=== PATIENT | male | born 1955 | race African-American/Black ===

== ENCOUNTER 2018-01-03 15:28 | Observation (INO) ==
--- NOTE | 2018-01-03 15:53 | Emergency Department Note ---
Disposition Clinical Impression: Chest pain Disposition: Admitted As Inpatient Condition: Fair [facility] Care Provider[facility] - Forms: ED Satisfaction Letter Time of Disposition: 18:11 General Adult HPI - General Chief complaint: ED Shortness of Breath/Dyspnea Stated complaint: Chest Pain, seziure yesterday Time Seen by Provider: 01/03/18 15:37 Source: patient Limitations: no limitations Nursing Notes Reviewed: Yes Vital Signs Reviewed: Yes - History of Present Illness HPI Narrative: Patient presents to the ED with a chief complaint of fever cough. Chest pain when he coughs. Onset Monday. He states his mom was sick on Monday. She has dementia. He states on Monday he started feeling bad as well. Fevered. [place]. Dry cough. States his chest hurts when he coughs. [place] feverish but did not check his temperature. He has been taking some ibuprofen with no relief. No vomiting or diarrhea. Pain Scale: 7 - Related Data Previous Rx's Medication Instructions Recorded LevETIRAcetam [Keppra] 500 mg PO Q12HR #60 tablet 10/28/16 Allergies Allergy/AdvReac Type Severity Reaction Status Date / Time No Known Allergies Allergy Verified 10/28/16 07:02 All systems ED: reviewed and negative except as stated. Constitutional: Reports: fever, chills Cardiovascular: Reports: chest pain. Denies: palpitations Respiratory: Reports: cough. Denies: dyspnea, wheezes, hemoptysis Gastrointestinal: Denies: vomiting, diarrhea Integumentary: Denies: rash Neurological: Denies: headache Past Medical History - Past Medical History Attestation: Yes The following information was validated with the patient. Source: patient Medical history: Reports: diabetes, dialysis, hypertension Psychiatric history: Reports: no psych history - Social History Smoking Status: Current every day smoker Smokeless Tobacco Status: No Alcohol use: Reports: occasionally Drug use: Reports: marijuana Physical Exam Patient is awake alert no acute distress. Pleasant and conversant. Speaks full sentences. Lungs diminished in bases but clear. Temp 99.9. Abdomen soft. - General Limitations: no limitations General appearance: alert, in no apparent distress - Head Head exam: atraumatic, normocephalic - Eye Eye exam: Present: normal appearance, PERRL, EOMI - ENT ENT exam: normal exam, normal oropharynx, mucous membranes moist - Neck Neck exam: Present: normal inspection - Chest Chest inspection: Present: normal inspection - Respiratory Respiratory exam: Absent: respiratory distress, wheezes, stridor - Cardiovascular Cardiovascular exam: Present: regular rate, normal rhythm, normal heart sounds - Abdominal Exam Abdominal exam: Present: soft, tenderness (About epigastric without guarding) - Neurological Exam Neurological exam: Present: alert, oriented X3 - Psychiatric Psychiatric exam: Present: normal affect - Skin Skin exam: Present: warm, dry Course Course Narrative: Patient is in no distress. We will check a 2 view chest x-ray. Flu. Cardiac workup. - Consultations Consultation #1: Dr Tadeo accepts Time: 18:12 Vital Signs Temperature 99.9 F H 01/03/18 15:32 Pulse Rate 103 01/03/18 15:32 Respiratory Rate 18 01/03/18 15:32 Blood Pressure 164/103 01/03/18 15:32 O2 Sat by Pulse Oximetry 95 01/03/18 15:32 Temperature 99.9 F H 01/03/18 15:32 Pulse Rate 81 01/03/18 16:40 Respiratory Rate 22 01/03/18 16:40 Blood Pressure 156/104 01/03/18 16:40 O2 Sat by Pulse Oximetry 96 01/03/18 16:40 Oxygen Delivery Oxygen Delivery Room Air Medical Decision Making - MDM Narrative Medical decision making narrative: The patient's workup was unremarkable for positive troponin 0.11. He has no EKG changes. He will be admitted for further cardiac workup. - Medical Records Medical records reviewed: Yes I reviewed the patient's medical records. - Lab Data Lab results reviewed: Yes I reviewed the patient's lab results. Result diagrams: 01/03/18 16:05 01/03/18 16:05 Lab Results 01/03/18 01/03/18 01/03/18 Range/Units 16:05 16:05 16:05 WBC 7.1 (4.3-11.1) K/mcL RBC 4.60 (4.19-5.50) M/mcL Hgb 13.5 (12.9-16.9) g/dL Hct 41.9 (37.5-50.1) % MCV 91.1 (83.0-100.0) fL MCH 29.3 (28.0-33.3) pg MCHC 32.2 (31.6-35.5) g/dL RDW 12.5 (11.5-14.5) % Plt Count 137 L (140-400) K/mcL MPV 10.2 (9.4-12.4) fL Immature Gran % 0.3 (0-4) % Seg Neutrophils % 70.2 % Lymphocytes % 18.0 % Monocytes % 10.6 % Eosinophils % 0.8 % Basophils % 0.1 % Neutrophils # 5.0 (1.6-8.9) K/mcL Lymphocytes # 1.3 (0.6-4.6) K/mcL Monocytes # 0.8 (0.0-1.3) K/mcL Eosinophils # 0.1 (0.0-0.6) K/mcL Basophils # 0.0 (0.0-0.2) K/mcL Sodium 140 (136-145) mEq/L Potassium 3.1 L (3.5-5.1) mEq/L Chloride 105 (98-107) mEq/L Carbon Dioxide 26 (23-29) mEq/L BUN 11 (8-23) mg/dL Creatinine 1.10 (0.70-1.30) mg/dL Est GFR ( Amer) > 60 (> 60) Est GFR (Non-Af Amer) > 60 (> 60) BUN/Creatinine Ratio 10 (6-26) Glucose 143 H (70-105) mg/dL Calculated Osmolality 292 (280-300) Lactic Acid 1.2 (0.5-2.2) mmol/L Calcium 8.7 (8.6-10.3) mg/dL Troponin I (< 0.04) ng/mL B-Natriuretic Peptide (Less than 100) pg/mL 01/03/18 01/03/18 Range/Units 16:05 16:05 WBC (4.3-11.1) K/mcL RBC (4.19-5.50) M/mcL Hgb (12.9-16.9) g/dL Hct (37.5-50.1) % MCV (83.0-100.0) fL MCH (28.0-33.3) pg MCHC (31.6-35.5) g/dL RDW (11.5-14.5) % Plt Count (140-400) K/mcL MPV (9.4-12.4) fL Immature Gran % (0-4) % Seg Neutrophils % % Lymphocytes % % Monocytes % % Eosinophils % % Basophils % % Neutrophils # (1.6-8.9) K/mcL Lymphocytes # (0.6-4.6) K/mcL Monocytes # (0.0-1.3) K/mcL Eosinophils # (0.0-0.6) K/mcL Basophils # (0.0-0.2) K/mcL Sodium (136-145) mEq/L Potassium (3.5-5.1) mEq/L Chloride (98-107) mEq/L Carbon Dioxide (23-29) mEq/L BUN (8-23) mg/dL Creatinine (0.70-1.30) mg/dL Est GFR ( Amer) (> 60) Est GFR (Non-Af Amer) (> 60) BUN/Creatinine Ratio (6-26) Glucose (70-105) mg/dL Calculated Osmolality (280-300) Lactic Acid (0.5-2.2) mmol/L Calcium (8.6-10.3) mg/dL Troponin I 0.11 H* (< 0.04) ng/mL B-Natriuretic Peptide 65 (Less than 100) pg/mL - Radiology Data Radiology results reviewed: Yes I reviewed the patient's radiology results. Chest X-Ray 01/03/18 15:47 IMPRESSION: No acute cardiopulmonary process. D/ / Destini Greco MD / Destini Greco MD Interpreting Provider: Destini Greco MD Chest CTA 01/03/18 16:44 IMPRESSION: No evidence of pulmonary embolism or acute pulmonary abnormality. D/ / Talat Crowe MD / Talat Crowe MD Interpreting Provider: Talat Crowe MD - EKG Data EKG #1 EKG attestation: Yes I reviewed and interpreted this EKG. EKG results narrative: Normal sinus rhythm at 86. Anterolateral and inferior T-wave inversions. [place] deviation. Normal QRS. QT 444 with a QTC of 387. Unchanged from EKG 2016. Critical Care Time Critical Care Time: No
[2018-01-03 16:17] LABS: Basophils % 0.1 %; Eosinophils # 0.1 K/mcL (0.0-0.6); Eosinophils % 0.8 %; Hematocrit 41.9 % (37.5-50.1); Hemoglobin 13.5 g/dL (12.9-16.9); Immature Granulocytes % 0.3 % (0-4); Lymphocytes # 1.3 K/mcL (0.6-4.6); Mean Corpuscular HGB Conc 32.2 g/dL (31.6-35.5); Mean Corpuscular Hemoglobin 29.3 pg (28.0-33.3); Mean Corpuscular Volume 91.1 fL (83.0-100.0); Mean Platelet Volume 10.2 fL (9.4-12.4); Monocytes # 0.8 K/mcL (0.0-1.3); Monocytes % 10.6 %; Platelet Count 137 K/mcL (140-400); Red Cell Distribution Width 12.5 % (11.5-14.5); Segmented Neutrophils % 70.2 %
[2018-01-03] MEDS ORDERED: 0.9 % Sodium Chloride 1,000 ML IVC ONE (16:31)
[2018-01-03] MEDS ORDERED: Ketorolac 30 MG/ML VIAL IVP ONE (16:31)
[2018-01-03 16:35] LABS: BUN/Creatinine Ratio 10 (6-26); Blood Urea Nitrogen 11 mg/dL (8-23); Calcium 8.7 mg/dL (8.6-10.3); Carbon Dioxide 26 mEq/L (23-29); Chloride 105 mEq/L (98-107); Glucose 143 mg/dL (70-105); Osmolality,Calculated 292 (280-300); Potassium 3.1 mEq/L (3.5-5.1); Sodium 140 mEq/L (136-145); eGFR For African Americans > 60 (> 60); eGFR For Non-African Americans > 60 (> 60)
[2018-01-03] MEDS ORDERED: Aspirin 325 MG TABLET PO ONE (16:44)
[2018-01-03] MEDS ORDERED: Nitroglycerin 0.4 MG TAB.SUBL SL PRN (16:44)
[2018-01-03] MEDS ORDERED: Naloxone 0.4 MG/ML INJ IVP PRN (18:38)
[2018-01-03] MEDS ORDERED: *HR* Dextrose 50 % in Water (Syg) 50 ML SYRINGE IVP PRN (18:41)
[2018-01-03] MEDS ORDERED: Dextrose Gel 15 GM/37.5 ML TUBE PO PRN ×2 (18:41)
[2018-01-03] MEDS ORDERED: D5% in Water 1,000 ML IVC PRN (18:41)
--- NOTE | 2018-01-03 18:51 | Internal Med History&Physical ---
Date of Encounter: 01/03/18 Time of Encounter: 18:47 Assessment and Plan (1) Chest pain Current visit: Yes Status: Acute Reporting chest pain with cough and viral URI symptoms, concern for pericarditis given his clinical presentstion No prior h/o CAD, but his initial troponin was elevated at 0.11, without EKG changes or chest pain except with cough. He has not had a formal cardiac workup. -Trend troponins Q6hrs x2 -TTE -Continuous tele and Spo2 monitoring Qualifiers: Chest pain type: unspecified Qualified Code(s): R07.9 - Chest pain, unspecified (2) Viral URI with cough Current visit: Yes Status: Acute Presents with weakness, fatigue, fever and productive cough since Monday evening I suspect the patient may have a viral URI versus influenza -supportive care -rapid influenza -respiratory infection panel if rapid flu negative -respiratory support PRN (3) Elevated troponin Current visit: Yes Status: Acute elevated troponin likely d/t demand ischemia. -trend troponin -continuous tele Internal Medicine - H&P: HPI Chief complaint: weakness, fatigue, cough, and chest pain with cough Admitted From: Home Plans for Post Hospital Care: Home History of present illness: Mr. Montano is a 62 year old male with a PMH of diabetes, presents today to [facility] with fatigue, weakness, fevers and cough. Additionally, he mentions chest pain with coughing. This all began on Monday evening and has been progressively getting worse since. He reports that his mother has been sick since Monday and he has frequent contact with her. He admits to fevers with the highest of 101.5, aches, sore throat, and a cough productive of yellow sputum. He denies any N/V/D, or abdominal pain, flank pain, dsyuria, or unilateral extremity swelling or pain. Past Med Surg Social Fam HX - Past Medical History Medical history: diabetes, dialysis, hypertension Psychiatric history: no psych history - Social History Smoking Status: Current every day smoker Smokeless Tobacco Status: No Alcohol use: occasionally Drug use: marijuana - Family History Mother Living Status: Still Living Father History Unknown: Yes - Additional Family History Additional family history: non contributory Internal Medicine - H&P: Meds Ketoconazole Shampoo [Nizoral Shampoo] 1 appl TP AD 01/03/18 [History] NIFEdipine [Nifedipine ER] 90 mg PO DAILY 01/03/18 [History] Sildenafil Citrate [Viagra] 100 mg PO AD PRN 01/03/18 [History] Terazosin HCl 10 mg PO HS 01/03/18 [History] 3 Allergy/AdvReac Type Severity Reaction Status Date / Time No Known Allergies Allergy Verified 10/28/16 07:02 All Systems PM: A 10-system review of systems was performed and is negative for pertinent findings except as documented above in the HPI. - Constitutional Constitutional: as per HPI - EENT Eyes: as per HPI Nose, mouth and throat: as per HPI - Cardiovascular Cardiovascular ROS IM: as per HPI, dyspnea (mild SOB) - Respiratory Respiratory: no cough, no dyspnea, no wheezing, no excessive phlegm production - Gastrointestinal Gastrointestinal: no abdominal pain, no diarrhea, no hematemesis, no hematochezia, no melena, no nausea, no vomiting - Musculoskeletal Musculoskeletal ROS IM: no numbness, no tingling - Integumentary Integumentary IM: no rash, no unusual bruising - Neurological Neurological ROS: no confusion, no convulsions, no focal weakness, no numbness, no tingling, no tremor(s) - Constitutional Vitals: Temp Pulse Resp BP Pulse Ox 99.9 F H 84 18 166/48 96 01/03/18 15:32 01/03/18 18:08 01/03/18 18:25 01/03/18 18:25 01/03/18 18:08 General appearance: Present: cooperative, mild distress, A&O X 3, answers questions appropriately - Head Head exam: Present: atraumatic, normocephalic - Eye Eye exam: Present: PERRL, conjuntiva pink, sclera anicteric Pupils: Present: PERRL - Neck Neck exam general surgery: Present: supple, trachea midline. Absent: lymphadenopathy - Respiratory Respiratory exam: Present: CTAB. Absent: accessory muscle use, rales, rhonchi, wheezes - GI/Abdominal GI/Abdominal exam: Present: normal bowel sounds, soft, no peritoneal signs. Absent: distended, tenderness - Extremities Exam Extremities exam: Present: warm, radial pulses palpable and symmetrical. Absent : calf tenderness, cyanotic, pedal edema - Neurological Exam Neurological exam: Present: CN II-XII intact, oriented X3, no focal deficits. Absent: pronater drift, facial droop, speech deficit - Skin Skin exam: Present: dry Additional comments: small ulcer on his right lower lip Internal Med - H&P Results - Labs CBC & Chem 7: 01/03/18 16:05 01/03/18 16:05 - EKG Data -: EKG Interpreted by Myself EKG shows normal: sinus rhythm Rate: normal - EKG Data Prior EKG available for review: yes When compared to previous EKG: there is no significant change Interpretation IM: normal EKG EKG comments: NSR without st elevation or depression 01/03/18 18:52 - Impressions Impressions Chest X-Ray 01/03/18 15:47 IMPRESSION: No acute cardiopulmonary process. D/ / Destini Greco MD / Destini Greco MD Interpreting Provider: Destini Greco MD Chest CTA 01/03/18 16:44 IMPRESSION: No evidence of pulmonary embolism or acute pulmonary abnormality. D/ / Talat Crowe MD / Talat Crowe MD Interpreting Provider: Talat Crowe MD
[2018-01-03] MEDS ORDERED: GuaiFENesin/Dextromethorphan TABLET PO PRN (19:11)
[2018-01-03] MEDS ORDERED: Ketorolac 15 MG/ML VIAL IVP PRN (22:12)
[2018-01-03] MEDS: Melatonin 3 MG TABLET PO PRN (22:22)
[2018-01-03] MEDS: Insulin LISPRO 300 UNITS/3 ML VIAL SQ SCH (22:33)
[2018-01-04] MEDS: Acetaminophen 325 MG TABLET PO PRN ×2 (00:29→20:23)
[2018-01-04 04:24] LABS: Hematocrit 39.1 % (37.5-50.1); Hemoglobin 12.7 g/dL (12.9-16.9); Mean Corpuscular HGB Conc 32.5 g/dL (31.6-35.5); Mean Corpuscular Hemoglobin 29.5 pg (28.0-33.3); Mean Corpuscular Volume 90.7 fL (83.0-100.0); Mean Platelet Volume 10.6 fL (9.4-12.4); Platelet Count 124 K/mcL (140-400); Red Blood Count 4.31 M/mcL (4.19-5.50); Red Cell Distribution Width 12.4 % (11.5-14.5)
[2018-01-04 04:54] LABS: BUN/Creatinine Ratio 11 (6-26); Blood Urea Nitrogen 10 mg/dL (8-23); Calcium 8.5 mg/dL (8.6-10.3); Carbon Dioxide 28 mEq/L (23-29); Chloride 105 mEq/L (98-107); Glucose 155 mg/dL (70-105); Osmolality,Calculated 292 (280-300); Potassium 3.3 mEq/L (3.5-5.1); Sodium 140 mEq/L (136-145); eGFR For African Americans > 60 (> 60); eGFR For Non-African Americans > 60 (> 60)
[2018-01-04] MEDS: Insulin LISPRO 300 UNITS/3 ML VIAL SQ SCH ×4 (07:30→20:23)
[2018-01-04] MEDS: NIFEdipine XL (24 HR) 30 MG TAB.ER.24 PO SCH (10:03)
--- NOTE | 2018-01-04 13:31 | Cardiology Consult Note ---
Date of Encounter: 01/04/18 Time of Encounter: 11:30 Assessment and Plan (1) Viral URI with cough Current Visit: Yes Status: Acute Per cardiology: -Admitted with febrile illness. -Management per primary service. (2) Elevated troponin Current Visit: Yes Status: Acute Per cardiology: -Troponins 0.11, 0.12 in the setting of viral URI, febrile illness. -States has chest pain with coughing. -Denies current chest pain. -Denies exertional symptoms. Reports was biking 8 miles per day prior to illness. -TTE with LVEF 65%, no segmental wall motion abnormalities -ECG with no acute ischemic changes. -Do not suspect NSTEMI, suspect demand ischemia related to above. No cardiac rehab consult warranted. -Will start asa, beta blokcer, and statin. -Anticipate cardiology sign off. Will arrange follow up in outpatient setting. Discussion w patient/family: The assessment and plan as outlined above was discussed with the patient and/or family members who expressed understanding and agreement. All questions were answered. Thank you for involving us in the care of your patient. Please call with any questions. Discussed and reviewed with . History of Present Illness Consult date: 01/04/18 Requesting physician: Tamar Guardado Consult reason: elevated troponin Chief complaint: cough ,fever History of present illness: Mr. Montano is a 62 year old male with a relevant past medical history of HTN, DM , smoking. Patient presented to [facility] with complaints of cough, congestion, and fever. Patient states he had chest pain while coughing. Reports increased shortness fo breath and increased fatigue that correlate with onset of URI symptoms. Patient reports prior to illness, he was biking 8 miles per day without symptoms. Denies current chest pain. Past Med Surg Social Fam HX - Past Medical History Attestation: Yes The following information was validated with the patient. Source: patient, old records reviewed, obtained from family Medical history: diabetes, hypertension Psychiatric history: no psych history - Social History Smoking Status: Current every day smoker Smokeless Tobacco Status: No Alcohol use: occasionally Drug use: marijuana - Family History Mother Living Status: Still Living Father History Unknown: Yes Medications and Allergies Ketoconazole Shampoo [Nizoral Shampoo] 1 appl TP AD 01/03/18 [History] NIFEdipine [Nifedipine ER] 90 mg PO DAILY 01/03/18 [History] Sildenafil Citrate [Viagra] 100 mg PO AD PRN 01/03/18 [History] Terazosin HCl 10 mg PO HS 01/03/18 [History] 3 Allergy/AdvReac Type Severity Reaction Status Date / Time No Known Allergies Allergy Verified 10/28/16 07:02 All Systems Review: A 10-system review of systems was performed and is negative for pertinent findings except as documented above in the HPI. - Constitutional Constitutional: fever(s) - Cardiovascular Cardiovascular: as per HPI - Respiratory Respiratory: cough Physical Examination Vital Signs, Last 4 Hours Temp Pulse Resp BP Pulse Ox 01/04/18 11:00 90 01/04/18 10:38 99.7 F H 91 18 136/83 90 General: Conversant, No Apparent Distress HEENT: Atraumatic, Normocephaly, Mucus Membranes Moist Neck: No JVD, Normal carotid pulses Cardiac: Reg Rate and Rhythm, Normal S1 and S2, No Murmur Lungs: Normal Breath Sounds, No Wheeze, Rales, Rhonchi Neuro: Alert and responsive, No focal deficits noted Abdomen: Soft, Non-Tender Skin: No rashes noted on visualized skin Musculoskeletal: No Chest Wall Tenderness Extremities: No Clubbing, No Cyanosis, No Edema, Normal Pulses Results 01/04/18 03:57 01/04/18 03:57 Lab Results Impressions Chest X-Ray 01/03/18 15:47 IMPRESSION: No acute cardiopulmonary process. D/ / Destini Greco MD / Destini Greco MD Interpreting Provider: Destini Greco MD Chest CTA 01/03/18 16:44 IMPRESSION: No evidence of pulmonary embolism or acute pulmonary abnormality. D/ / Talat Crowe MD / Talat Crowe MD Interpreting Provider: Talat Crowe MD Echocardiogram 01/04/18 19:09 Impressions: LVEF 65%. Normal LV chamber size and function. Mild concentric left ventricular hypertrophy. Mild left ventricular diastolic dysfunction. Normal right ventricular structure and function. No evidence of pulmonary hypertension. No significant valvular dysfunction. Left Ventricular Wall Motion: Rest Echo Findings All wall segments showed normal motion. Findings: Study Quality * Technically adequate exam. ECG Findings * Normal sinus rhythm. Left Ventricle * LVEF 65%. * Normal LV chamber size and function. * Mild concentric left ventricular hypertrophy. * Mild left ventricular diastolic dysfunction. Right Ventricle * Normal right ventricular structure and function. Left Atrium * Mildly dilated left atrium. Right Atrium * Mildly dilated right atrium. Interatrial Septum * Interatrial septum not well evaluated. Aortic Valve * Trileaflet aortic valve with normal function. * No aortic regurgitation. * No aortic stenosis. Mitral Valve * Normal mitral valve structure and function. * No mitral regurgitation. * No mitral stenosis. Tricuspid Valve * Normal tricuspid valve structure and function. * Trace tricuspid regurgitation. * No evidence of pulmonary hypertension. Pulmonic Valve * Normal pulmonic valve structure and function. * No pulmonic regurgitation. Aorta * Normally sized aortic root. Pericardium * The pericardium appears normal. IVC * Normal IVC dimensions and inspiratory collapse. Pulmonary Artery * Normal visualized portions of the main pulmonary artery. Active Medications Acetaminophen (Tylenol) 650 mg PO Q6HR PRN PRN Reason: Mild Pain Stop: 07/05/18 22:13 Last Admin: 01/04/18 00:29 Dose: 650 mg Aspirin (Aspirin Ec) 81 mg PO DAILY COLT Stop: 07/07/18 09:01 Atorvastatin Calcium (Lipitor) 40 mg PO HS COLT Stop: 07/06/18 21:01 Dextrose/Water (Dextrose 50% (Syg)) 25 ml IVP AD PRN PRN Reason: Hypoglycemia Stop: 07/05/18 18:42 Glucagon (Glucagen) 1 mg IM ONCE PRN PRN Reason: Hypoglycemia Stop: 07/05/18 18:42 Glucose (Gluctose) 15 gm PO ONCE PRN PRN Reason: Hypoglycemia Stop: 07/05/18 18:42 Glucose (Gluctose) 30 gm PO ONCE PRN PRN Reason: Hypoglycemia Stop: 07/05/18 18:42 Guaifenesin (Mucinex Dm) 1 each PO BID PRN PRN Reason: Cough Stop: 07/05/18 19:12 Last Admin: 01/03/18 22:21 Dose: 1 each Dextrose (Dextrose 5%) 1,000 mls @ 100 mls/hr IVC .Q10H PRN PRN Reason: HYPOGLYCEMIA Stop: 07/05/18 18:42 Insulin Human Lispro (Humalog) 0 units SQ HS COLT PRN Reason: Protocol Stop: 07/05/18 21:01 Last Admin: 01/03/18 22:33 Dose: Not Given Insulin Human Lispro (Humalog) 0 units SQ TIDAC COLT PRN Reason: Protocol Stop: 07/06/18 07:31 Last Admin: 01/04/18 11:45 Dose: Not Given Melatonin (Melatonin) 1.5 mg PO HS PRN PRN Reason: Insomnia Stop: 07/05/18 21:15 Last Admin: 01/03/18 22:22 Dose: 1.5 mg Metoprolol Succinate (Toprol Xl) 12.5 mg PO DAILY [facility] Stop: 07/07/18 09:01 Naloxone HCl (Narcan) 0.4 mg IVP Q2MIN PRN PRN Reason: SEE COMMENTS Stop: 07/05/18 18:39 Nifedipine (Procardia Xl) 90 mg PO DAILY [facility] Stop: 07/06/18 09:01 Last Admin: 01/04/18 10:03 Dose: 90 mg Nitroglycerin (Nitroglycerin) 0.4 mg SL Q5MIN PRN PRN Reason: Chest Pain Stop: 07/05/18 16:45 Last Admin: 01/03/18 16:54 Dose: 0.4 mg Terazosin HCl (Hytrin) 10 mg PO HS [facility] Stop: 07/05/18 21:01 Last Admin: 01/03/18 22:35 Dose: Not Given Laboratory Tests 01/03/18 01/03/18 01/04/18 16:05 22:13 03:57 Hgb 12.7 L Creatinine Troponin I 0.11 H* 0.12 H* 01/04/18 03:57 Hgb Creatinine 0.92 Troponin I - Imaging and Cardiology Chest Xray: report reviewed Echo: report reviewed - EKG Interpretation EKG results cardiology: personally reviewed (ECG with SR, HR 86.), other ( Telemetry reviewed with average HR previous 12 hours noted to be 92, SR. PVCs and PACs noted.) Consult Discharge Plan - Plan [facility]errals: [facility] [Primary Care Provider[facility] -
--- NOTE | 2018-01-04 17:49 | Internal Med Progress Note ---
Date of Encounter: 01/04/18 Time of Encounter: 17:47 - Assessment and plan (1) Chest pain Current Visit: Yes Status: Acute Assessment and plan: Chest pain with cough, viral illness Per cardiology: -Troponins 0.11, 0.12 in the setting of viral URI, febrile illness. -States has chest pain with coughing. -Denies current chest pain. -Denies exertional symptoms. Reports was biking 8 miles per day prior to illness. -TTE with LVEF 65%, no segmental wall motion abnormalities -ECG with no acute ischemic changes. -Do not suspect NSTEMI, suspect demand ischemia related to above. No cardiac rehab consult warranted. -Will start asa, beta blokcer, and statin. -Anticipate cardiology sign off. Will arrange follow up in outpatient setting. Qualifiers: Chest pain type: unspecified Qualified Code(s): R07.9 - Chest pain, unspecified (2) Elevated troponin Current Visit: Yes Status: Acute Assessment and plan: Troponin 0.11, 0.12 in the setting of viral upper respiratory infection and febrile illness. Do not suspect an STEMI suspect demand ischemia related to above know and anticipated cardiology workup they plan to sign off and arrange follow-up in outpatient setting this was discussed with the family and the patient by cardiology (3) Viral URI with cough Current Visit: Yes Status: Acute Assessment and plan: Check respiratory infection panel Rapid influenza negative O2 as needed Cough suppressant (4) Hypokalemia Current Visit: Yes Status: Acute Assessment and plan: Replace and recheck in a.m. - Constitutional Vitals: Temp Pulse Resp BP Pulse Ox 98.3 F 104 18 126/72 92 01/04/18 15:22 01/04/18 15:22 01/04/18 15:22 01/04/18 15:22 01/04/18 15:22 General appearance: Present: cooperative, mild distress, A&O X 3, pleasant, no acute distress, answers questions appropriately - Head Head exam: Present: atraumatic, normocephalic - Eye Eye exam: Present: PERRL, conjuntiva pink, sclera anicteric Pupils: Present: PERRL - Neck Neck exam general surgery: Present: supple, trachea midline. Absent: lymphadenopathy - Respiratory Respiratory exam: Present: decreased breath sounds. Absent: accessory muscle use, rales, rhonchi, wheezes Additional comments: cough - Cardiovascular Cardiovascular exam: Present: RRR, +S1, +S2. Absent: diastolic murmur, gallop, rubs, systolic murmur - GI/Abdominal GI/Abdominal exam: Present: normal bowel sounds, soft, no peritoneal signs. Absent: distended, tenderness - Extremities Exam Extremities exam: Present: warm, radial pulses palpable and symmetrical. Absent : calf tenderness, cyanotic, pedal edema - Neurological Exam Neurological exam: Present: CN II-XII intact, oriented X3, no focal deficits. Absent: pronater drift, facial droop, speech deficit - Skin Skin exam: Present: dry, intact, warm Internal Medicine: Result - Labs CBC & Chem 7: 01/04/18 03:57 01/04/18 03:57 Labs: Short CBC 01/04/18 Range/Units 03:57 WBC 9.7 (4.3-11.1) K/mcL Hgb 12.7 L (12.9-16.9) g/dL Hct 39.1 (37.5-50.1) % Plt Count 124 L (140-400) K/mcL BMP 01/04/18 03:57 Sodium 140 Potassium 3.3 L Chloride 105 Carbon Dioxide 28 BUN 10 Creatinine 0.92 Glucose 155 H Calcium 8.5 L Cardiac Enzymes 01/03/18 Range/Units 22:13 Troponin I 0.12 H* (< 0.04) ng/mL - Impressions Impressions Echocardiogram 01/04/18 19:09 Impressions: LVEF 65%. Normal LV chamber size and function. Mild concentric left ventricular hypertrophy. Mild left ventricular diastolic dysfunction. Normal right ventricular structure and function. No evidence of pulmonary hypertension. No significant valvular dysfunction. Left Ventricular Wall Motion: Rest Echo Findings All wall segments showed normal motion. Findings: Study Quality * Technically adequate exam. ECG Findings * Normal sinus rhythm. Left Ventricle * LVEF 65%. * Normal LV chamber size and function. * Mild concentric left ventricular hypertrophy. * Mild left ventricular diastolic dysfunction. Right Ventricle * Normal right ventricular structure and function. Left Atrium * Mildly dilated left atrium. Right Atrium * Mildly dilated right atrium. Interatrial Septum * Interatrial septum not well evaluated. Aortic Valve * Trileaflet aortic valve with normal function. * No aortic regurgitation. * No aortic stenosis. Mitral Valve * Normal mitral valve structure and function. * No mitral regurgitation. * No mitral stenosis. Tricuspid Valve * Normal tricuspid valve structure and function. * Trace tricuspid regurgitation. * No evidence of pulmonary hypertension. Pulmonic Valve * Normal pulmonic valve structure and function. * No pulmonic regurgitation. Aorta * Normally sized aortic root. Pericardium * The pericardium appears normal. IVC * Normal IVC dimensions and inspiratory collapse. Pulmonary Artery * Normal visualized portions of the main pulmonary artery. Consult Discharge Plan - Plan [facility]errals: [facility] [Primary Care Provider] -
[2018-01-04] MEDS ORDERED: Benzonatate 100 MG CAPSULE PO PRN (17:54)
[2018-01-04 19:39] LABS: Adenovirus Not Detected (Not Detect); Bordetella Pertussis Not Detected (Not Detect); Chlamydophila pneumoniae Not Detected (Not Detect); Coronavirus 229E Not Detected (Not Detect); Coronavirus HKU1 Not Detected (Not Detect); Coronavirus NL63 Not Detected (Not Detect); Coronavirus OC43 Not Detected (Not Detect); Human Metapneumovirus Not Detected (Not Detect); Human Rhinovirus/Enterovirus Not Detected (Not Detect); Influenza A Subtype 2009 H1 Not Detected (Not Detect); Influenza A Untypeable Not Detected (Not Detect); Influenza B Not Detected (Not Detect); Mycoplasma pneumoniae Not Detected (Not Detect); Parainfluenza Virus 1 Not Detected (Not Detect); Parainfluenza Virus 2 Not Detected (Not Detect); Parainfluenza Virus 3 Not Detected (Not Detect); Parainfluenza Virus 4 Not Detected (Not Detect); Respiratory Syncytial Virus Not Detected (Not Detect)
--- NOTE | 2018-01-04 19:42 | Electrocardiograph Report ---
[place] [id number] Test Date: 2018-01-03 Pat Name: Louis Montano Department: 103 Room: 3B Gender: M [employer] Inspector: : [id number] Requested By: Megha See Order Number: [id number] Reading MD: Emmanuel Burgess MD Measurements Intervals [place] Rate: 86 P: 53 AR: 200 QRS: 59 QRSD: 86 T: -3 QT: 344 QTc: 387 Interpretive Statements SINUS RHYTHM LEFT VENTRICULAR HYPERTROPHY AND ST-T CHANGE BASELINE ARTIFACT Electronically Signed On 01-04-2018 19:40:32 EST by Emmanuel Burgess MD
[2018-01-04] MEDS: Melatonin 3 MG TABLET PO PRN (20:24)
[2018-01-05 04:54] LABS: Basophils % 0.3 %; Eosinophils % 0.6 %; Hematocrit 37.7 % (37.5-50.1); Immature Granulocytes % 0.4 % (0-4); Lymphocytes # 2.3 K/mcL (0.6-4.6); Lymphocytes % 33.3 %; Mean Corpuscular HGB Conc 31.8 g/dL (31.6-35.5); Mean Corpuscular Hemoglobin 28.7 pg (28.0-33.3); Mean Corpuscular Volume 90.2 fL (83.0-100.0); Mean Platelet Volume 10.5 fL (9.4-12.4); Monocytes # 0.8 K/mcL (0.0-1.3); Monocytes % 11.6 %; Neutrophils # 3.7 K/mcL (1.6-8.9); Nucleated Red Blood Cells 0.4 /100 WBC (0); Platelet Count 130 K/mcL (140-400); Red Blood Count 4.18 M/mcL (4.19-5.50); Red Cell Distribution Width 12.2 % (11.5-14.5); Segmented Neutrophils % 53.8 %
[2018-01-05 05:41] LABS: BUN/Creatinine Ratio 14 (6-26); Blood Urea Nitrogen 13 mg/dL (8-23); Calcium 8.6 mg/dL (8.6-10.3); Carbon Dioxide 25 mEq/L (23-29); Chloride 106 mEq/L (98-107); Glucose 146 mg/dL (70-105); Osmolality,Calculated 293 (280-300); Potassium 3.1 mEq/L (3.5-5.1); Sodium 140 mEq/L (136-145); eGFR For African Americans > 60 (> 60); eGFR For Non-African Americans > 60 (> 60)
[2018-01-05] MEDS: Insulin LISPRO 300 UNITS/3 ML VIAL SQ SCH ×2 (08:46→11:37)
[2018-01-05] MEDS: NIFEdipine XL (24 HR) 30 MG TAB.ER.24 PO SCH (08:57)
[2018-01-05] MEDS ORDERED: Aspirin Enteric Coated 81 MG Tablet PO SCH (09:00)
[2018-01-05] MEDS ORDERED: Metoprolol XL (24 HR) Succ 25 MG TAB.ER.24H PO SCH (09:00)
[2018-01-05 10:35] VITALS: BP 131/82
--- NOTE | 2018-01-05 11:43 | Discharge Summary ---
Date of Encounter: 01/05/18 Time of Encounter: 11:41 - Discharge Diagnosis (1) Chest pain Priority: Primary Status: Acute Comments: Patient had chest pain with cough and upper respiratory infection type symptoms Per cardiology note: adynamic troponins with a history of high blood pressure. No dynamic changes on EKG or biomarkers with atypical chest pain. Physically active at home without symptoms. Consistent with demand ischemia, cardiology signed off and recommended no further workup Qualifiers: Chest pain type: unspecified Qualified Code(s): R07.9 - Chest pain, unspecified (2) Elevated troponin Priority: Primary Status: Acute Comments: Per cardiology: -Troponins 0.11, 0.12 in the setting of viral URI, febrile illness. -States has chest pain with coughing. -Denies current chest pain. -Denies exertional symptoms. Reports was biking 8 miles per day prior to illness. -TTE with LVEF 65%, no segmental wall motion abnormalities -ECG with no acute ischemic changes. -Do not suspect NSTEMI, suspect demand ischemia related to above. No cardiac rehab consult warranted. -Will start asa, beta blokcer, and statin. (3) Viral URI with cough Priority: Primary Status: Acute Comments: Presented with weakness, fatigue, fever and productive cough since Monday evening likelyviral URI, influenza screen negative, RIP negative -supportive care including rest, fluids, [id number] methods to control aches and pains Vitamin C and zinc scuffs with the girlfriend, they are not harmful Follow-up with PCP in a week or so Provide Tessalon prescription to control cough (4) Hypokalemia Priority: Primary Status: Acute Comments: Replaced (5) HTN (hypertension) Priority: Secondary Status: Acute Comments: We will provide metipranolol at low dose for blood pressure control until seen at the [facility] clinic. Qualifiers: Hypertension type: unspecified Qualified Code(s): I10 - Essential (primary ) hypertension (6) HLD (hyperlipidemia) Priority: Secondary Status: Acute Comments: Provide Lipitor prescription and advised follow-up at [facility] clinic. Qualifiers: Hyperlipidemia type: unspecified Qualified Code(s): E78.5 - Hyperlipidemia , unspecified - Discharge Medications Prescriptions: Atorvastatin [Lipitor] 40 mg PO HS #30 tablet Benzonatate [Tessalon] 200 mg PO TID PRN #30 capsule PRN Reason: Cough Metoprolol XL (24 HR) Succ [Toprol Xl] 12.5 mg PO DAILY #30 tab.er.24h Home Medications: Ketoconazole Shampoo [Nizoral Shampoo] 1 appl TP AD 01/03/18 [History] NIFEdipine [Nifedipine ER] 90 mg PO DAILY 01/03/18 [History] Sildenafil Citrate [Viagra] 100 mg PO AD PRN 01/03/18 [History] Terazosin HCl 10 mg PO HS 01/03/18 [History] Aspirin Enteric Coated [Aspirin EC] 81 mg PO DAILY tablet. 01/05/18 [Rx] Atorvastatin [Lipitor] 40 mg PO HS #30 tablet 01/05/18 [Rx] Benzonatate [Tessalon] 200 mg PO TID PRN #30 capsule 01/05/18 [Rx] Metoprolol XL (24 HR) Succ [Toprol Xl] 12.5 mg PO DAILY #30 tab.er.24h 01/05/18 [Rx] Allergies/Adverse Reactions: 3 Allergy/AdvReac Type Severity Reaction Status Date / Time No Known Allergies Allergy Verified 10/28/16 07:02 Procedures/tests Complete & Pending: Procedures Performed prior 72 hours Category Date Time Status EV echocardiogram Routine Y 01/04/18 19:09 Completed Date of admission: 01/03/18 18:18 [facility] Consults: 01/04/18 09:17 Consult to Cardiology [CONS] Routine Comment: Consulting Provider: [facility] [place] Reason for Consult: chest pain, elevated trop Time Notified: 09:18 Call Completed: Yes Discharging clinician: Tamar Guardado Anticipated date of discharge: 01/05/18 - Patient Status Disposition: Home, Self-Care Condition: Fair Functional capacity at discharge: independent ambulation Overall status at discharge: patient is progressing back to baseline - Discharge Instructions Follow Up With: [facility] [Primary Care Provider] - - Diet and Activity Activity: resume usual activities as tolerated Diet: advance to your usual diet Interval History: Patient has had no further chest pain, his viral symptoms are waxing and waning with just feeling a little weak and achy. No shortness of breath. Denies fever or chills, tolerating his diet. No changes in bowel or bladder. Hospital course: Mr. Montano is a 62 year old male who was admitted with chest pain with cardiology consult and cardiac cause has been ruled out. Is attributed to his atypical chest pain to his cough with viral syndrome. He has been [facility] Explained I viral syndrome and how that is managed. Explained that all of his viral workup here was negative as far as flu and a request for infectious panel was negative. He does have a history of hypertension on no medications so provided him with metoprolol until he seen in the clinic as well as Lipitor for his hyperlipidemia. Gave a cough suppressant for help with his cough which was causing chest pain. Please refer to the assessment and plan for further details. - Time Spent with Patient Total time spent providing and/or coordinating discharge services: Less than 30 minutes - Constitutional Vitals: Temp Pulse Resp BP Pulse Ox 98.8 F 91 15 131/82 87 01/05/18 10:33 01/05/18 10:33 01/05/18 10:33 01/05/18 10:33 01/05/18 10:33 General appearance: Present: cooperative, mild distress, A&O X 3, pleasant, no acute distress, answers questions appropriately - Head Head exam: Present: atraumatic, normocephalic - Eye Eye exam: Present: PERRL, conjuntiva pink, sclera anicteric Pupils: Present: PERRL - Neck Neck exam general surgery: Present: supple, trachea midline. Absent: lymphadenopathy - Respiratory Respiratory exam: Present: CTAB. Absent: accessory muscle use, rales, rhonchi, wheezes - Cardiovascular Cardiovascular exam: Present: RRR, +S1, +S2. Absent: diastolic murmur, gallop, rubs, systolic murmur, tachycardia - GI/Abdominal GI/Abdominal exam: Present: normal bowel sounds, soft, no peritoneal signs. Absent: distended, tenderness - Extremities Exam Extremities exam: Present: warm, radial pulses palpable and symmetrical. Absent : calf tenderness, cyanotic, pedal edema - Neurological Exam Neurological exam: Present: CN II-XII intact, oriented X3, no focal deficits. Absent: pronater drift, facial droop, speech deficit - Skin Skin exam: Present: dry, intact, warm
== END 2018-01-05 13:45 | disposition home or self-care (01) ==
LOC: 3BNU 15:28 → EMEROO 15:28 → 3BNU 19:18
PROVIDERS: ADMIT Internal Medicine; ATTEND Registered Nurse